=== PATIENT | male | born 1960 | race Caucasian/White ===

== ENCOUNTER → 2019-01-09 16:05 | Outpatient (CLI) | payer OTHER, MEDICAID, SELFPAY ==
--- NOTE | 2019-01-09 | DI.MRI.S_ITS ---
PROCEDURE: MR HEAD/BRAIN WO/W CON INDICATIONS: G40.89 TECHNIQUE: Noncontrast axial T1 spin echo, axial T2 fast spin echo, sagittal and axial FLAIR, coronal T2 fast spin echo, axial gradient echo, axial diffusion and ADC through the brain. After the administration of contrast, axial and coronal 3D VIBE or T1 spin echo with fat saturation through the brain. COMPARISON: None. FINDINGS: Image quality: Excellent. CSF Spaces: Basal cisterns are patent. No extra-axial fluid collections. Ventricles are normal in size and shape. Brain: No midline shift. No intracranial bleeds or masses. No definite sclerotic appearance of the hippocampal regions bilaterally Within the region of the IACs and cerebellopontine angles, no discrete mass or abnormal enhancement is seen. No abnormal intracranial enhancement. The brainstem appears normal. Diffusion-weighted images demonstrate no acute ischemic insults. No chronic ischemic insults. Normal intravascular flow voids are present. Skull and face: Calvarial marrow is normal in signal. Orbits appear normal. Mild bilateral maxillary sinus mucosal thickening IMPRESSION: Negative examination. No evidence of acute ischemia. No acute intracranial signal abnormality or enhancement. Normal appearance of the IACs. No evidence of hippocampal sclerosis Dictated by: Cayden Martinez M.D. on 01/09/2019 at 17:20 Approved by: Cayden Martinez M.D. on 01/09/2019 at 17:25
== END ==
PROVIDERS: Visit Provider Family Medicine Geriatric Medicine
DX: G40.89 Other seizures (principal); J32.0 Chronic maxillary sinusitis
CPT/HCPCS: 70553; A9579

== ENCOUNTER → 2021-07-29 14:54 | Outpatient (CLI) | payer OTHER, MEDICAID, SELFPAY | PROVIDERS: PCP Family Medicine; Visit Provider Specialist | DX: R30.0 Dysuria (principal); R97.20 Elevated prostate specific antigen [PSA]; N40.1 Benign prostatic hyperplasia with lower urinary tract symptoms; N13.8 Other obstructive and reflux uropathy | CPT/HCPCS: 51798; 81002; 87086; 99215 ==

== ENCOUNTER → 2021-09-09 11:28 | Outpatient (CLI) | payer OTHER, MEDICAID, SELFPAY | PROVIDERS: PCP Family Medicine; Visit Provider Specialist | DX: N40.1 Benign prostatic hyperplasia with lower urinary tract symptoms (principal); N13.8 Other obstructive and reflux uropathy; R30.0 Dysuria; R97.20 Elevated prostate specific antigen [PSA] | CPT/HCPCS: 51798; 81002; 87086; 99214 ==

== ENCOUNTER → 2021-12-11 13:49 | Outpatient (CLI) | payer OTHER, MEDICAID, SELFPAY ==
--- NOTE | 2021-12-11 | DI.MRI.S_ITS ---
PROCEDURE: MR PELIS WO/W CON INDICATIONS: BPH TECHNIQUE: Coronal HASTE, axial T1 FSE with fat saturation, 3-plane nonbreath-hold T2 FSE. After the administration of contrast, dynamic axial, delayed axial and coronal VIBE or 2-D FLASH with fat saturation through the pelvis. Optional diffusion weighted imaging and ADC may be performed. COMPARISON: None. FINDINGS: Image quality: Diffusion weighted and dynamic contrast enhanced images are diagnostic. Prostate: 5.1 x 6.5 x 7.5 centimeters. Estimated volume is about 129 cc. Transitional zone heterogenous nodules are present, either well encapsulated or mostly encapsulated, compatible with PI-RADS 1 or 2 likely BPH nodules. Mildly T2 hypointense heterogenous striated appearance of the peripheral zone is commonly seen with current or prior prostatitis, PI-RADS 2. These findings can obscure small cancers. BPH is a dominant feature with median lobe hypertrophy into the apex of the bladder. The seminal vesicles appear clear. There is a suspected extruded BPH nodule arising from the left apex with some diffusion restriction (PI-RADS 2). There is also a diffusion restricting BPH nodule in the left anterior mid gland (PI-RADS 2). No PI-RADS 3, 4, or 5 lesions identified. Genitourinary system: Bladder appears unremarkable. There is mild wall thickening which could be better evaluated with cystoscopy if needed. This is often seen with chronic obstruction. No hydronephrosis. Bowel and peritoneum: The rectum is unremarkable. No bowel obstruction in the lower abdomen Nodes and vessels: No pathologic adenopathy by size criteria or aneurysmal artery. Soft tissues: Small fat containing inguinal hernia Bones: No acute or suspicious osseous abnormality. IMPRESSION: No PI-RADS 3, 4, or 5 nodules. Moderate to severe prostatomegaly with numerous BPH nodules described above. Overall assessment is PI-RADS 2. Other incidental findings above. Dictated by: Khalif Stern M.D. on 12/11/2021 at 16:32 Approved by: Khalif Stern M.D. on 12/11/2021 at 16:38
== END ==
PROVIDERS: PCP Family Medicine; Referring Provider Specialist; Visit Provider Specialist
DX: N40.3 Nodular prostate with lower urinary tract symptoms (principal); N13.8 Other obstructive and reflux uropathy
CPT/HCPCS: 72197

== ENCOUNTER → 2022-11-23 15:36 | Outpatient (CLI) | payer OTHER, MEDICAID, SELFPAY ==
--- NOTE | 2022-11-23 | DI.US.S_ITS ---
PROCEDURE: US ABDOMEN LIMITED INDICATIONS: ABDOMINAL PAIN TECHNIQUE: Real-time scanning was performed of the abdominal and retroperitoneal organs, with image documentation. COMPARISON: None. FINDINGS: Liver: Liver is normal in size and homogeneous in echotexture. The liver has 2 septated cysts in the left lobe measuring 1.4 x 1.2 x 1.5 cm and 1.0 x 0.8 x 0.9 cm. Gallbladder: The gallbladder has no gallstones, pericholecystic fluid, gallbladder wall thickening, or surrounding inflammatory change. Biliary ducts: No extrahepatic biliary ductal dilatation. The common bile duct measures 4 mm. Pancreas: Visualized portions of the pancreas are sonographically normal. Miscellaneous: The appendix is not visualized. IMPRESSION: The appendix is not definitively visualized and therefore acute appendicitis cannot be excluded; however there are no secondary findings to suggest acute appendicitis. No masses or fluid collections are seen in the right lower quadrant. Dictated by: Raymundo Guerrier M.D. on 11/23/2022 at 16:51 Approved by: Raymundo Guerrier M.D. on 11/23/2022 at 16:53
== END ==
PROVIDERS: PCP Family Medicine; Referring Provider Nurse Practitioner Family; Visit Provider Nurse Practitioner Family
DX: R10.31 Right lower quadrant pain (principal)
CPT/HCPCS: 76705

== ENCOUNTER 2022-11-24 18:12 | Observation (INO) | payer OTHER, MEDICAID, SELFPAY ==
[2022-11-24 18:41] VITALS: BP 152/90; PULSE 86; TEMP 35.6; O2SAT 97
[2022-11-24 18:59] VITALS: BP 129/89; PULSE 73; RESP 18; TEMP 35.9; O2SAT 97
--- NOTE | 2022-11-24 19:02 | PM.HP.1 ---
History of Present Illness History of Present Illness Date Patient Seen: 11/24/22 Time Patient Seen: 19:02 Chief complaint: APPENDICITIS Narrative: 62-year-old man and transferred from [place] with acute appendicitis. Six days of right lower quadrant abdominal pain. Evaluated in [place] [facility] today CT abdomen pelvis demonstrates the dilated appendix with surrounding free fluid no abscess. No prior abdominal surgery. PERIOPERATIVE -remote history of PR. No coronary stents. -history of seizures -No chest pain or shortness of breath at rest or with exertion. -No anticoagulation or antiplatelets -No anesthetic issues with orthopedic surgeries -Nonsmoker [facility] Medical History BPH w urinary obs/LUTS Elevated PSA History of fracture of right ankle Hx of tinnitus Kidney stone History of colon polyps Hx of polymyalgia rheumatica Hx of seizure disorder Hx of hyperlipidemia Hx of vertigo Heart attack Surgical History History of amputation of finger of left hand H/O vasectomy Family History Father Hypertension Mother Migraine IBS (irritable bowel syndrome) Social History marital status: number of children: 3 Smoking Status: Never smoker alcohol intake: current caffeine: Yes Type(s) of exercise: none Meds Home Medications and Allergies Home Medications Medication Instructions Recorded Confirmed Type divalproex 500 mg tablet,delayed 500 mg PO BID 07/24/21 11/24/22 History release finasteride 5 mg tablet 5 mg PO DAILY #90 tabs 02/16/22 11/24/22 Rx tamsulosin 0.4 mg capsule 0.8 mg (2 x 0.4 mg) PO BEDTIME 03/03/22 11/24/22 Rx #180 caps prednisone 5 mg tablet 5 mg PO DAILY 11/24/22 11/24/22 History Allergies Allergy/AdvReac Type Severity Reaction Status Date / Time Penicillins Allergy Verified 09/02/22 13:42 keppra Allergy Intermediate Uncoded 09/02/22 13:42 Exam Vital Signs (past 8 hours): - 11/24/22 18:41 Temperature 96.1 F L Pulse Rate 86 Blood Pressure 152/90 H Pulse Oximetry 97 Oxygen Flow Rate 0 Oxygen Flow Rate 0 Narrative Exam Narrative: GENERAL: A well nourished, well developed adult man, resting comfortably, in no acute distress. HEENT: Normocephalic, atraumatic. No scleral icterus CHEST: Rising symmetrically. No audible wheezes CARDIOVASCULAR: Warm and well perfused. Regular rate ABDOMEN: Tender right lower quadrant. No peritonitis. EXTREMITIES: Normal tone and without edema. NEUROLOGIC: Moving all extremities spontaneously. No gross motor deficits. Assessment & Plan Assessment and plan (1) Acute appendicitis: Qualifiers: Acute appendicitis type: with localized peritonitis Appendicitis gangrene presence: unspecified whether gangrene present Appendicitis perforation presence: unspecified whether perforation present Appendicitis abscess presence: without abscess Qualified Code(s): K35.30 - Acute appendicitis with localized peritonitis, without perforation or gangrene Status: Acute Assessment & Plan narrative: 62-year-old man history of seizures an PR admitted to with acute appendicitis. Unable to view images of CT abdomen pelvis currently but according to report demonstrates dilated appendix with fat stranding no abscess. Tender right lower quadrant no peritonitis. Discussed management options with patient including antibiotic therapy vs appendectomy. Following discussion preference to proceed with laparoscopic appendectomy tomorrow, 10/12 -diet as tolerated NPO after midnight -levofloxacin and Flagyl .
[2022-11-24] MEDS: metroNIDAZOLE 500 MG/100 ML PIGGYBACK 100 MG IV (19:14)
[2022-11-24] MEDS: LACTATED RINGERS 1,000 ML 100 ML IV (19:15)
[2022-11-24] MEDS: TAMSULOSIN 0.4 MG CAPSULE 0.8 MG PO (21:03)
[2022-11-24] MEDS: DIVALPROEX DR 250 MG TABLET 500 MG PO (21:04)
[2022-11-24] MEDS: levoFLOXacin 500 MG/100 ML PIGGYBACK 100 MG IV (21:05)
[2022-11-24 21:43] VITALS: BMI 57.5
[2022-11-24 21:47] VITALS: BMI 39.6
[2022-11-24] MEDS: ACETAMINOPHEN 325 MG TABLET 650 MG PO (22:02)
[2022-11-24 22:28] VITALS: BMI 39.6
[2022-11-24 22:59] VITALS: BP 128/79; PULSE 57; RESP 18; TEMP 36.3; O2SAT 95
[2022-11-25] VITALS (13 sets, daily range): BP systolic 112–156; BP diastolic 75–96; PULSE 57–77; RESP 16–20; TEMP 36.4–37; O2SAT 94–99; BMI 39.6
--- NOTE | 2022-11-25 | PATH_ITS ---
[facility] Accession Number: [id number] No. of containers..01 Tissue . 01 Material submitted: . body - APPENDIX . 01 Diagnosis: Appendix, Appendectomy: Acute suppurative appendicitis and acute serositis. Negative for dysplasia and malignancy. MRV 12/01/2022 1544 Local . 01 Electronically signed: . Carmela Higgins MD, Pathologist NPI- [id number] . 01 Gross description: . The specimen is received in formalin, labeled with the patient's name, , and no further designation, and consists of a single intact dilated vermiform appendix with attached mesoappendix measuring 4.9 x 3.7 x 1.7 cm. The serosal surface is tellez-brown and smooth with an abundant amount of adherent jernigan, fibrinous exudate. The margin is stapled and is inked black. The lumen is filled with multiple tellez-brown, firm fecaliths measuring up to 2.5 cm in greatest dimension. The mucosal surface is white-tellez and thickened with the wall measuring up to 0.5 cm. A access services representative cross section to include the appendiceal orifice margin and distal tip is submitted in cassettes A1-A2. ([id number]) /FRR 11/27/2022 1333 Local . 01 Pathologist provided ICD-10: K35.80 . 01 CPT . 045283 Performed at: 01 [facility] [address] [place] [address], [place], [place] [id number] MD Torrey Robertson MD Phone: [phone]
[2022-11-25] MEDS: metroNIDAZOLE 500 MG/100 ML PIGGYBACK 100 MG IV ×2 (03:03→11:01)
[2022-11-25] MEDS: OXYCODONE IR 5 MG TABLET PO (03:09)
[2022-11-25] MEDS: LACTATED RINGERS 1,000 ML 100 ML IV (08:31)
[2022-11-25] MEDS: DIVALPROEX DR 250 MG TABLET 500 MG PO (08:32)
[2022-11-25] MEDS: FINASTERIDE 5 MG TABLET PO (08:32)
[2022-11-25] MEDS: predniSONE 5 MG TABLET PO (08:32)
--- NOTE | 2022-11-25 11:42 | SUR.HOLD ---
Seizure pads placed to bed for precautions. Per patient, last seizure approximately 3 months ago but unsure if he passed out or if it was a true seizure.
[2022-11-25] MEDS: LACTATED RINGERS 1,000 ML 42 ML IV (11:46)
--- NOTE | 2022-11-25 11:55 | PM.PREOP ---
Pre-operative Note Interval Note History & Physical reviewed/Exam performed by Physician: Yes Changes to H&P: No H&P completed within 30 days and has changed as indicated here:: Overview of the operation was discussed. We discussed operative risks including hemorrhage, infection, damage to surrounding structures, conversion to open hernia formation. I have been answered and he is in agreement with this plan. He provides his written and verbal consent to proceed.
--- NOTE | 2022-11-25 11:59 | PM.OP.1 ---
Operative Date/Time/Diagnoses Date of procedure: 11/25/22 Time of procedure: 11:59 Pre-op diagnosis: Acute appendicitis Post-op diagnosis: same Procedure & Clinicians Procedure: Laparoscopic appendectomy Same procedure as scheduled: Yes Indications: Symptoms and radiographic findings consistent with acute appendicitis Surgeon: Nathan Clark Anesthesia Type: General Operative Notes Findings: Dilated appendix non perforated appendix. Appendix was perforated external to body and within the Endo-Catch bag during extraction. Stones within the appendix. Specimen(s): other (Chely) Estimated Blood Loss (mL): 40 Procedure in detail: Patient was brought to the operating room placed supine on the table. Bilateral lower extremity compression devices were applied. Anesthesia was induced and they intubated with an endotracheal tube. They received 3.375 g of Zosyn prior to skin incision. The left arm was tucked and appropriately padded. They were prepped and draped in sterile fashion. Time-out was performed. An infraumbilical incision was made the umbilical stalk was grasped and elevated and incision was made and the abdomen was entered atraumatically. A 12 mm balloon trocar was then placed through the incision and pneumoperitoneum of 14 mm Hg was established. The scope was then inserted and the abdomen inspected, there was no evidence of injury upon entry. Two 5 mm ports were placed under direct visualization, one in the left lower quadrant and second in the lower midline. A thorough laparoscopic evaluation was performed inspecting all four quadrants. There was simple fluid in the right lower quadrant. The patient was then tilted right side up. The small bowel was then swept to the upper aspect of the abdomen. The tenie were followed to the base of the cecum where the appendix was identified. Appendix was tense and significantly dilated and difficult to grasp. Appendix was non perforated. The appendix was grasped and a window within the mesentery was made at the base of the appendix using the [place] dissector with care to avoid injuring the cecum. The mesoappendix was then divided using the endo-stapler with a staple length of 2.5 mm-white load. The mesenteric staple line was inspected for hemostasis. The appendix was then amputated flush at the cecum using the endo-stapler blue load. The specimen was retrieved using a endoscopic retrieval bag through the 10 mm infra-umbilical port. During the process of extraction small hole within the appendix tore while the appendix was within the extraction bag and external to the body. The right paracolic gutter and the pouch of Jack were irrigated The 5 mm ports were then removed under direct visualization. The umbilical fascial incision was closed with 0 Vicryl in a figure-eight fashion. The skin wounds were irrigated and closed with 4-0 Monocryl followed by the application of Dermabond. Sponge instrument count at the end of the operation was correct. The patient tolerated procedure well was extubated and transferred to the postoperative care unit in stable condition. Post-operative Condition: stable Disposition: observation
--- NOTE | 2022-11-25 12:21 | SUR.OPER ---
Supine on padded OR bed, head on pillow, arms padded and tucked at sides, legs uncrossed, safety belt at thigh, tape over blanket over lower legs .
[2022-11-25] MEDS: ACETAMINOPHEN IV 1,000 MG/100 ML VIAL 400 MG IV (12:43)
--- NOTE | 2022-11-25 14:46 | PC.NURSE ---
vitals are stable. ambulated in hallways and denied any dizziness or light headedness. he says he feels like his baseline. pt voided in the bathroom. pt also had some water and pudding and tolerated it.
== END 2022-11-25 14:40 | disposition home or self-care (01) ==
LOC: AC 18:15
PROVIDERS: Admitting Provider Surgery; PCP Family Medicine; Referring Provider Surgery; Visit Provider Surgery
PROC: 0DTJ4ZZ Resection of Appendix, Percutaneous Endoscopic Approach (ICD-10-PCS; CPT 44970; principal; 2022-11-25 12:00)
DX: K35.80 Unspecified acute appendicitis (principal); I25.2 Old myocardial infarction; Z86.69 Personal history of other diseases of the nervous system and sense organs
CPT/HCPCS: 44970; 99222; G0378; J0131; J0330; J1100; J1885; J1956; J2405; J2704; J3010

== ENCOUNTER → 2023-04-08 12:12 | Outpatient (CLI) | payer OTHER, MEDICAID, SELFPAY ==
--- NOTE | 2023-04-08 12:14 | DI.MRI.S_ITS ---
PROCEDURE: MR PELIS WO/W CON INDICATIONS: ELEVATED PSA TECHNIQUE: Coronal HASTE, axial T1 FSE with fat saturation, 3-plane nonbreath-hold T2 FSE. After the administration of contrast, dynamic axial, delayed axial and coronal VIBE or 2-D FLASH with fat saturation through the pelvis. Diffusion weighted imaging and ADC was performed. COMPARISON: [facility], MR, MR PELVIS WO/W CON, 12/11/2021, 13:54. FINDINGS: Image quality: Diffusion weighted and dynamic contrast enhanced images are diagnostic. Prostate: Gland size is 7.2 x 6.4 x 4.8 cm; ellipsoid gland volume is 108 mL. This was previously 129, likely similar allowing for differences in scan and measurement technique. Transitional zone heterogenous nodules are present, either well encapsulated or mostly encapsulated, compatible with PI-RADS 1 or 2 likely BPH nodules. Mildly T2 hypointense heterogenous striated appearance of the peripheral zone is commonly seen with current or prior prostatitis, PI-RADS 2. These findings can obscure small cancers. Genitourinary system: Trabeculated bladder likely sequelae of chronic obstruction. There is median lobe hypertrophy extending along the bladder neck Bowel and peritoneum: Mild rectal wall thickening, possibly artifact versus proctitis. Nodes and vessels: No pathologic lymph nodes by size criteria in the pelvis. No aneurysmal vessel identified. Soft tissues: Small fat containing left inguinal hernia. Bones: No focal suspicious enhancing osseous lesion. IMPRESSION: Similar MRI compared to 12/11/2021. Marked prostatomegaly. The predominant finding is BPH. Overall assessment is PI-RADS 2. No PI-RADS 3, 4, or 5 lesion identified. Consider continued PSA surveillance and repeat MRI if necessary. Dictated by: Khalif Stern M.D. on 04/08/2023 at 14:49 Approved by: Khalif Stern M.D. on 04/08/2023 at 14:54
== END ==
PROVIDERS: PCP Family Medicine; Referring Provider Specialist; Visit Provider Specialist
DX: N40.0 Benign prostatic hyperplasia without lower urinary tract symptoms (principal); R97.20 Elevated prostate specific antigen [PSA]; N32.89 Other specified disorders of bladder; K40.90 Unilateral inguinal hernia, without obstruction or gangrene, not specified as recurrent
CPT/HCPCS: 72197; A9579